=== PATIENT | male | born 1990 | race Caucasian/White ===

== ENCOUNTER 2018-06-14 05:58 | Inpatient (IN) | payer OTHER ==
[2018-06-14] VITALS (14 sets, daily range): BP systolic 101–128; BP diastolic 51–88
[~2018-06-14] VITALS: Ht 172.7 cm; Wt 54.0 kg
[2018-06-14] MEDS ORDERED: NOHOMEMEDICATIONS (06:06)
[2018-06-14 06:27] LABS: ABSOLUTE NEUTROPHILS 9.7 thou/uL (1.4-8.2); BASOPHILS 0.1 % (0.0-2.0); HEMATOCRIT 47.2 % (42.0-52.0); HEMOGLOBIN 15.6 gm/dL (14.0-18.0); LYMPHOCYTES 8.9 % (24.0-44.0); MONOCYTES 3.5 % (1.0-8.0); PLATELET COUNT 167 thou/uL (150-400); POLYS 87.5 % (36.0-66.0); RBC 5.19 mil/uL (4.50-6.00); RDW 12.8 % (10.5-14.5); WBC 11.1 thou/uL (4.0-11.0)
[2018-06-14 06:29] LABS: ANION GAP 11 mmol/L (7-16); BUN 15 mg/dL (7-18); CALCIUM 9.6 mg/dL (8.5-10.1); CHLORIDE 105 mmol/L (98-107); CO2 26 mmol/L (21-32); GLUCOSE 134 mg/dL (74-106); POTASSIUM 4.2 mmol/L (3.5-5.1); SODIUM 142 mmol/L (136-145)
[2018-06-14 06:46] LABS: ALBUMIN 4.4 g/dL (3.4-5.0); APTT 25.7 Seconds (24.5-32.8); PROTIME 10.8 Seconds (9.3-11.4); SALICYLATE < 2.8 mg/dL (2.8-20.0); SGOT 19 U/L (15-37); SGPT 25 U/L (30-65); TOTAL BILIRUBIN 0.3 mg/dL (<0.1-1.0); TOTAL PROTEIN 7.7 g/dL (6.4-8.2)
[2018-06-14 10:41] LABS: TOTAL BILIRUBIN 0.3 mg/dL (<0.1-1.0)
--- NOTE | 2018-06-14 13:48 | EKG ---
[address] [place] [address] ELECTROCARDIOGRAM REPORT Name: SUMMER MENDOZA Room #: 237-P ADM IN M.R.#: [id number] ������������������ Admission: 06/14/18 ������������������ Attend Phys: Clifton Murcia MD Discharge: ������������������ Date of : 89 Report #: [id number] ����������������������������������������������������������������� [id number] THIS REPORT FOR: //name// [facility] Test Date: 2018-06-14 Test Time: 11:59:13 Pat Name: SUMMER MENDOZA Department: Room: 237 P Gender: M Manager Media: [employer] MCCARTHY : 1990 Requested By: Clifton Murcia Order Number: [id number] MD: Rickey Rodriguez Measurements Intervals [place] Rate: 89 P: 0 MO: 318 QRS: 98 QRSD: 100 T: 39 QT: 346 QTc: 421 Interpretive Statements Sinus rhythm Prolonged MO interval Left posterior fascicular block No previous ECG available for comparison Electronically Signed On 06-14-2018 13:48:36 WRAPPER DIPPER by Rickey Rodriguez [email or web address] ��������������������������������������������� <ELECTRONICALLY SIGNED> ���������������������������������������� By: Rickey Rodriguez MD ��������������������������������������������� 06/14/18 1348 1159 1159 Rickey Rodriguez MD /GUILLERMO
[2018-06-14 16:42] LABS: ALBUMIN 3.5 g/dL (3.4-5.0); DIRECT BILIRUBIN < 0.1 mg/dL (<0.1-0.3); SGOT 18 U/L (15-37); SGPT 24 U/L (30-65); TOTAL BILIRUBIN 0.3 mg/dL (<0.1-1.0); TOTAL PROTEIN 6.2 g/dL (6.4-8.2)
--- NOTE | 2018-06-14 18:43 | NUR ---
END OF SHIFT NOTE. PT UP AD JIMY IN ROOM. ON 3RD BAG OF ANTIDOTE. NO MORE N/V. MORPHINE X 2 FOR TOOTH PAIN.
[2018-06-15] VITALS (26 sets, daily range): BP systolic 93–120; BP diastolic 51–81
[2018-06-15 02:22] LABS: HEMATOCRIT 41.5 % (42.0-52.0); HEMOGLOBIN 13.7 gm/dL (14.0-18.0); MCHC 33.2 g/dL (28.0-37.0); MCV 90.4 fL (80.0-100.0); RBC 4.59 mil/uL (4.50-6.00); RDW 13.1 % (10.5-14.5); WBC 5.9 thou/uL (4.0-11.0)
[2018-06-15 03:00] LABS: ALBUMIN 3.1 g/dL (3.4-5.0); ANION GAP 9 mmol/L (7-16); BUN 9 mg/dL (7-18); CALCIUM 8.7 mg/dL (8.5-10.1); CHLORIDE 107 mmol/L (98-107); CO2 26 mmol/L (21-32); CREATININE 0.8 mg/dL (0.7-1.3); DIRECT BILIRUBIN < 0.1 mg/dL (<0.1-0.3); GLUCOSE 107 mg/dL (74-106); POTASSIUM 3.7 mmol/L (3.5-5.1); SGOT 48 U/L (15-37); SGPT 59 U/L (30-65); SODIUM 142 mmol/L (136-145); TOTAL BILIRUBIN 0.4 mg/dL (<0.1-1.0); TOTAL PROTEIN 5.8 g/dL (6.4-8.2)
--- NOTE | 2018-06-15 05:26 | NUR ---
ASSUMED OT CARE AT 1900. VSS. PT A&0X4. ASSESSMENTS AND MEDS GIVEN ARE DOCUMENTED. NO COMPLAINTS OF PAIN OR DISTRESS. PT JUST REQUESTED THAT HE NOT BE BOTHERED IN ORDER TO GET MAXIMUM REST. PT RESTED WELL ALL NIGHT, GOOD URINE OUTPUT, WILL CONTINUE TO MONITOR PER POC.
[2018-06-15] MEDS ORDERED: OXYCODONE HCL 55 MG PO (09:53)
[2018-06-15 10:46] LABS: TOTAL BILIRUBIN 0.5 mg/dL (<0.1-1.0)
--- NOTE | 2018-06-15 11:00 | NUR ---
PHARMACIST TALKING TO PT ABOUT WHEN IT WOULD BE SAFE TO USE TYLENOL AGAIN.
--- NOTE | 2018-06-15 11:30 | NUR ---
PT DISCHARGED, INSISTING ON WALKING DOWN TO PHARMACY. THIS RN TALKED HIM INTO WC. PT STATES HE HAS AN UBER COMING TO THE FRONT DOOR AT 1150. PT DROPPED AT PHARMACY TO WAIT FOR MEDS. PT VERBALIZED COMFORT WITH GETTING TO FRONT DOOR ON HIS OWN.
== END 2018-06-15 11:30 | disposition home or self-care (01) | DRG 918 ==
LOC: ER 05:58 → EROBS 07:38 → ICU 08:59
PROVIDERS: Emergency Medicine; ADMIT Hospitalist
DX: T39.1X1A Poisoning by 4-Aminophenol derivatives, accidental (unintentional), initial encounter (principal); H57.9 Unspecified disorder of eye and adnexa; Z28.21 Immunization not carried out because of patient refusal; Y92.89 Other specified places as the place of occurrence of the external cause
CPT/HCPCS: 10078; 10204